=== PATIENT | male | born 1990 | race Caucasian/White ===

== ENCOUNTER 2020-01-16 15:40 | Emergency (ER) | payer BC ==
[2020-01-16 16:26] VITALS: BP 133/79
[2020-01-16 16:37] LABS: Influenza A Molecular POSITIVE (Negative)
--- NOTE | 2020-01-16 16:45 | UC ---
FLU HPI - HPI Summary HPI Summary: Pt presents to with report of low grade temp x 3-4 days. Yesterday started with cough, body aches, sore throat. This am with emesis - non blood, non bilious no rash + sick contact No SOB Medications as entered in EMR reviewed this visit - History of Current Complaint Chief Complaint: UCGeneralIllness Stated Complaint: VOMITING, HEADACHE Time Seen by Provider: 01/16/20 16:41 Hx Obtained From: Patient Onset/Duration: Gradual Onset Severity Currently: Mild Severity Initially: Mild Pain Intensity: 2 - Allergy/Home Medications Allergies/Adverse Reactions: Allergies Allergy/AdvReac Type Severity Reaction Status Date / Time No Known Allergies Allergy Verified 01/16/20 16:21 Home Medications: Home Medications D-Methorphan/PE/Acetaminophen [Day Multi-Symp Flu-Severe Cold] 1 dose PO ONCE [History Confirmed 01/16/20] Dm/Acetaminophen/Doxylamine [Nighttime Cold and Flu Liquid] 1 dose PO ONCE 01/16 [History Confirmed 01/16/20] Ondansetron ODT TAB* [Zofran 4 MG Odt TAB*] 4 mg PO Q4H PRN #10 tab.odt [Rx] Oseltamivir Phosphate [Tamiflu] 75 mg PO BID #10 capsule 01/16/20 [Rx] PMH/Surg Hx/FS Hx/Imm Hx Previously Healthy: Yes - Surgical History Surgical History: None - Family History Known Family History: Positive: Respiratory Disease - influenza exposure - Social History Occupation: Employed Full-time Lives: With Family Alcohol Use: Occasionally Substance Use Type: None Smoking Status (MU): Never Smoked Tobacco Review of Systems All Other Systems Reviewed And Are Negative: Yes Constitutional: Positive: Fever, Fatigue ENT: Positive: Sore Throat, Sinus Congestion Respiratory: Positive: Cough. Negative: Shortness Of Breath Physical Exam - Summary Physical Exam Summary: Vital Signs Reviewed: Yes A+Ox3, tired appearing, congested Eyes: Conjunctiva Clear, YINKA. 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 apap/motrin. secretion precautions. humidified air. tamiflu. zofran helped + water at - will Rx. work note. return precautions. pt in agreement with plan Flu Course/Dx - Course Course Of Treatment: Pt presents to reporting fevers x 2-3 day. Yesterday with body aches, cough , congestion. Today with emesis vitals reivewed Pt tired appearing, not toxic cough will check influenza, apap, zofran po trial reassess - Differential Dx/Diagnosis Provider Diagnosis: Influenza Discharge ED - Sign-Out/Discharge Documenting (check all that apply): Patient Departure All imaging exams completed and their final reports reviewed: No Studies - Discharge Plan Condition: Stable Disposition: HOME Prescriptions: Ondansetron ODT TAB* [Zofran 4 MG Odt TAB*] 4 mg PO Q4H PRN #10 tab.odt PRN Reason: Nausea Oseltamivir Phosphate [Tamiflu] 75 mg PO BID #10 capsule Patient Education Materials: Influenza (ED) Forms: *Work Release Referrals: [facility] [place] [facility] [Outside] No Primary Care Phys,[facility]OP[facility] [Primary Care Provider] - Additional Instructions: - Stay well hydrated. Drink plenty of non-alcoholic, non-caffinated beverages. - Take medication as prescribed for nausea - Take Tamiflu as prescribed - Alternate ibuprofen (Advil, Motrin) 600mg and Tylenol 1000mg every 3 hours for pain or fever. Take with food. Do NOT take for more than 4-5 days. - These infections are spread by secretions - do NOT share eating or drinking utensils - clean items you share with other people such as cell phones, computer mouse, TV remote, computer tablets,etc. Once you start to feel better, change your toothbrush and your pillowcase. - get plenty of restful sleep - humidify the air in the room where you sleep - boil water, run a hot steam shower, vaporizer, cups of water by heat register - okay to take over the counter decongestant and cough medication - contact your doctor or return with questions or concerns. If you have uncontrolled fevers, vomiting, shortness of breath or other concerns it is recommended you go to the emergency department for further evaluation and treatment - Billing Disposition and Condition Condition: STABLE Disposition: Home
[2020-01-16] MEDS ORDERED: Ondansetron ODT TAB* 4 MG PO ONE (16:52)
[2020-01-16] MEDS ORDERED: Acetaminophen TAB* 325 MG PO ONE (17:03)
== END 2020-01-16 17:49 | disposition home or self-care (01) ==
LOC: UCCORT 15:40
DX: J11.1 Influenza due to unidentified influenza virus with other respiratory manifestations (principal)
CPT/HCPCS: 99202; A9270-GY; G0463